=== PATIENT | female | born 1995 | race Caucasian/White ===

== ENCOUNTER 2019-11-21 16:39 | Outpatient (CLI) | payer OTHER, SELFPAY ==
--- NOTE | 2019-11-21 17:00 | US_ITS ---
WS: [id number] Gallbladder ultrasound, 11/21/2019 Clinical Data: ABDOMINAL PAIN Comparison: None. Findings: The gallbladder shows no sludge or stone. The wall measures 2.0 mm with no pericholecystic fluid. The common bile duct is 5.1 mm and there are no intrahepatic ductal abnormalities. Liver shows no cysts, masses or dilated intrahepatic ducts. The pancreas is obscured by overlying bowel gas but no cyst, pseudocyst, or evidence of pancreatitis is noted. Right kidney measures 4.56 x 4.95 x 9.8 cm and no cyst, masses or hydronephrosis can be seen. The aorta and inferior vena cava show no vascular abnormalities. US/US gall bladder [id number] Impression: Negative gallbladder.
== END 2019-11-21 16:40 | disposition home or self-care (01) ==
LOC: RAD 16:46
PROVIDERS: PCP Nurse Practitioner Family; Visit Provider Nurse Practitioner Family
DX: R10.11 Right upper quadrant pain (principal)
CPT/HCPCS: 76705

== ENCOUNTER 2019-11-28 09:26 | Outpatient (CLI) | payer OTHER, SELFPAY ==
--- NOTE | 2019-11-28 09:32 | NM_ITS ---
WS: [id number] NUCLEAR MEDICINE HIDA SCAN CLINICAL INFORMATION: RUQ PAIN TECHNIQUE: Following intravenous administration of 7.8 mCi of technetium 99m mebrofenin, images of th e abdomen were obtained over the course of 60 minutes. Next, gallbladder ejection fraction was determ ined by obtaining preprandial and one-hour postprandial images of the gallbladder following oral rocio stion of Ensure. COMPARISON: Ultrasound November 21, 2019 FINDINGS: Normal hepatic uptake at 5 minutes. Gallbladder is visualized by 10 to 15 minutes. No evidence of acu te cholecystitis. Normal common bile duct and small bowel activity. No evidence of choledocholithiasi s. Normal gallbladder ejection fraction 75%. No evidence of chronic cholecystitis. NM/NM hepatobiliary w phar* [id number] IMPRESSION: 1. No evidence of acute or chronic cholecystitis. 2. Normal gallbladder ejection fraction 75%.
== END 2019-11-28 09:27 | disposition home or self-care (01) ==
LOC: NM 09:28
PROVIDERS: Family Provider Nurse Practitioner Family; PCP Nurse Practitioner Family; Visit Provider Nurse Practitioner Family
DX: R10.11 Right upper quadrant pain (principal)
CPT/HCPCS: 78227; A9537

== ENCOUNTER → 2021-09-22 09:30 | Outpatient (BNVA) | payer BC, SELFPAY | PROVIDERS: Visit Provider Family Medicine | DX: R79.89 Other specified abnormal findings of blood chemistry (principal); R10.11 Right upper quadrant pain; R11.0 Nausea | CPT/HCPCS: 80053; 82652; 85025 ==

== ENCOUNTER 2021-11-26 08:10 | Outpatient (CLI) | payer BC, SELFPAY | END 2021-11-26 08:11 | disposition home or self-care (01) | LOC: LAB 08:19 | PROVIDERS: PCP Nurse Practitioner Family; Visit Provider Nurse Practitioner Family | DX: Z32.01 Encounter for pregnancy test, result positive (principal) | CPT/HCPCS: 84702 ==

== ENCOUNTER 2021-12-06 08:33 | Outpatient (CLI) | payer BC, SELFPAY | END 2021-12-06 08:34 | disposition home or self-care (01) | LOC: LAB 08:48 | PROVIDERS: PCP Family Medicine; Visit Provider Obstetrics & Gynecology Gynecology | DX: Z32.01 Encounter for pregnancy test, result positive (principal) | CPT/HCPCS: 36415; 84702 ==

== ENCOUNTER → 2022-02-15 11:46 | Outpatient (BNVA) | payer BC, SELFPAY | PROVIDERS: Visit Provider Family Medicine | DX: Z34.00 Encounter for supervision of normal first pregnancy, unspecified trimester (principal) | CPT/HCPCS: 81511 ==

== ENCOUNTER 2022-03-04 08:41 | Outpatient (CLI) | payer BC, SELFPAY ==
--- NOTE | 2022-03-04 08:53 | US_ITS ---
WS: [id number] OBSTETRICAL ULTRASOUND COMPLETE HISTORY: ANATOMY COMPARISON: None available. Single intrauterine gestation in Cephalic presentation. Cervix is Closed and normal length. Cervical length is 4.0 cm. Normal amount of amniotic fluid surrounds the fetus. Placenta: Anterior, no previa or abruption. Placenta grade 1 Heart: 138 BPM. Four chambers are identified. 4 chambers are visualized. The outflow tracts are visua lized and appear normal. Anatomy: Imaging the head is difficult due to position of the head deep within the pelvis. No a bnormality identified. Spine is unremarkable but limited. kidneys, stomach and urinary bladder are unremarkable. Abdominal wall, three-vessel cord and cord insertion site are normal. 4 extremities are present. profile: Limited. Gender: Female. measurements: BPD = 4.5 cm = 19w3d HC = 16.2 cm = 19w0d AC = 12.6 cm = 18w1d FL = 2.9 cm = 19w0d EFW: 251 g. Biometry is internally concordant. AGA by ultrasound: 18w6d MARLENE by ultrasound: 07/30/2022 US/US OB >= 14 weeks fetus [id number] IMPRESSION: 1. Single intrauterine gestation of 18w6d with an MARLENE of 07/30/2022. 2. Quality of this examination is limited by body habitus and early gestationa l age. No abnormalities are identified.
== END 2022-03-04 08:42 | disposition home or self-care (01) ==
PROVIDERS: PCP Nurse Practitioner Adult Health; Visit Provider Family Medicine
DX: Z34.02 Encounter for supervision of normal first pregnancy, second trimester (principal); Z3A.18 18 weeks gestation of pregnancy
CPT/HCPCS: 76805

== ENCOUNTER → 2022-03-06 12:25 | Outpatient (BNVA) | payer BC, SELFPAY | PROVIDERS: PCP Nurse Practitioner Adult Health; Visit Provider Registered Nurse Neonatal Intensive Care | DX: Z20.822 Contact with and (suspected) exposure to COVID-19 (principal) | CPT/HCPCS: 87635 ==

== ENCOUNTER → 2022-04-15 09:35 | Outpatient (BNVA) | payer BC, SELFPAY | PROVIDERS: PCP Family Medicine; Visit Provider Family Medicine | DX: Z34.00 Encounter for supervision of normal first pregnancy, unspecified trimester (principal) | CPT/HCPCS: 82950 ==

== ENCOUNTER → 2022-06-17 11:00 | Outpatient (BNVA) | payer BC, SELFPAY | PROVIDERS: PCP Family Medicine; Visit Provider Family Medicine | DX: Z34.00 Encounter for supervision of normal first pregnancy, unspecified trimester (principal); Z51.81 Encounter for therapeutic drug level monitoring; R30.0 Dysuria | CPT/HCPCS: 81003; 85025; 87086 ==

== ENCOUNTER → 2022-07-01 10:46 | Outpatient (BNVA) | payer BC, SELFPAY | PROVIDERS: PCP Family Medicine; Visit Provider Family Medicine | DX: Z34.00 Encounter for supervision of normal first pregnancy, unspecified trimester (principal) | CPT/HCPCS: 87081 ==

== ENCOUNTER 2022-07-24 22:55 | Inpatient (IN) | payer BC, OTHER, SELFPAY ==
[2022-07-24] VITALS (33 sets, daily range): BP systolic 122–139; BP diastolic 72–87; PULSE 61–108; RESP 18; TEMP 36.7; O2SAT 97–99; BMI 56.1
[2022-07-25] VITALS (91 sets, daily range): BP systolic 89–156; BP diastolic 51–93; PULSE 48–160; RESP 14–20; TEMP 35.6–37.4; O2SAT 98–100
[2022-07-25] MEDS: dextrose 5%-lactated ringers 1,000 ML 125 ML IV ×3 (01:15→18:07)
[2022-07-25] MEDS: oxytocin 30 UNIT/500 ML BAG IV (06:10)
[2022-07-25 06:55] LABS: Basophils % 0.2 %; Eosinophils # 0.1 10^3/uL (0.0-0.8); Eosinophils % 0.6 %; Hematocrit 37.8 % (37.0-47.0); Lymphocytes # 2.7 10^3/uL (0.8-4.8); Lymphocytes % 24.2 %; Mean Corpuscular HGB Conc 31.7 g/dL (30.0-36.0); Mean Corpuscular Hemoglobin 27.5 pg (28.0-34.0); Mean Corpuscular Volume 86.5 fl (81-99); Mean Platelet Volume 14.1 fL (7.4-10.4); Monocytes # 0.8 10^3/uL (0.2-0.9); Monocytes % 7.1 %; Neutrophils # 7.38 10^3/uL (1.8-7.7); Neutrophils % 67.1 %; Nucleated Red Blood Cells % 0 %; Platelet Count 179 10^3/cmm (130-400); Red Blood Count 4.37 10^6/uL (4.1-5.3); Red Cell Distribution Width 15.3 % (12.1-15.1)
--- NOTE | 2022-07-25 08:29 | P.HP_ITS ---
Providers/Chief Complaint Admitting Physician: Hank Yañez MD Primary Care Provider: Jimbo Tai DO Chief Complaint: contractions History of Present Illness Kelli is a 27 y/o @ 39.2 weeks by 7 wk US inconsistent with LMP. Her preg is c/b PCOS, obesity, 1st TM bleeding, COVID-19 at 19 weeks gestation. The patient began having contractions at approximately 3 PM on 07/24/2022. They gradually became more regular and for this reason she presented to labor and delivery triage. She was noted to have regular contractions and changed from 3 cm to 4 cm dilation over the course of an hour and a half. For this reason she was kept for spontaneous labor. The patient is GBS negative. She has had some mild congestion, however no other cough, fevers, nausea, vomiting, diarrhea, constipation, dysuria. She denies any leakage of fluid or vaginal bleeding. Medications/Allergies Home Medications Medication Instructions Recorded Confirmed Last Taken Type omeprazole 20 mg capsule,delayed 20 mg PO DAILY 05/26/21 07/22/22 Unknown History release buspirone 5 mg tablet 5 mg PO TID #90 tabs 12/21/21 07/22/22 Unknown Rx Allergies Allergy/AdvReac Type Severity Reaction Status Date / Time Penicillins Allergy Unknown Verified 07/18/22 15:25 PFSH Acute PFSH: Medical History GERD (gastroesophageal reflux disease) PCOS (polycystic ovarian syndrome) Family History Grandfather Cancer Grandmother Cancer Mother Hypertension Diabetes Hypothyroidism Social History Smoking and tobacco status: never smoked Second hand smoke exposure: No Alcohol intake: current Alcohol intake frequency: few times a month Desire information about alcohol rehabilitation?: No Female Reproductive History: : 1 Vitals/I&O/Wt Last Vital Signs Temp 97.1 F L 07/25/22 04:23 Pulse 98 07/25/22 08:23 Resp 18 07/25/22 06:07 BP 116/80 07/25/22 08:23 Pulse Ox 98 07/24/22 22:37 O2 Del Method 07/24/22 23:47 07/24/22 07/25/2207/25/22 22:59 06:59 14:59 Intake Total 6.667 / 6.667 Balance 6.667 / 6.667 Weight last 48 hrs Weight 317 lb Weight 317 lb Physical Exam Narrative: General: Alert and oriented x3 Eyes: Pupils equal round and reactive to light and accommodation Mouth: Mucous membranes moist, pharynx non-erythematous Cardiac: Regular rate and rhythm without murmurs Lungs: Clear to auscultation bilaterally without wheezes, crackles or rhonchi Abdomen: Soft, non-tender, fundus consistent with gestational age Extremities: Trace edema in the bilateral lower extremities Data : 07/24/22 23:23 A&P Assessment and plan (1) Supervision of normal intrauterine in primigravida: The patient is doing well at this time. She is enrique every 2 to 3 minutes. heart tones are in the mid 130s with moderate variability good accelerations with a category 1 tracing. The patient is GBS negative. Her blood type is O+. We have added IV Pitocin as the patient's contractions were spacing out. We will continue to increase this as needed to keep her contractions close and her cervix changing. She is currently 6 cm dilated with 95% effacement. There is a bulging bag of water, however the head is still ballotable. Proceed with routine intrapartum care. Attestations Medical Necessity Statement*: The patient will be here for greater than 2 midnights due to routine intrapartum and management of labor and delivery. Coding Level of Care Code Acute Practice Management Consultant for Chg Fwd Diagnoses Supervision of normal intrauterine in primigravida Z34.00
[2022-07-25] MEDS: lactated ringers 1,000 ML 999 ML IV ×2 (08:41→09:44)
--- NOTE | 2022-07-25 09:27 | ANES.PREANE2 ---
Pre-Anesthetic Assessment Height/Weight: Height 1.6 m Weight 143.789 kg Temp Pulse Resp BP Pulse Ox O2 Del Method 97.9 F 96 18 130/72 98 07/25/22 09:08 07/25/22 09:07 07/25/22 06:07 07/25/22 09:07 07/24/22 22:37 07/24/22 23:47 Epidural Familial anesthetic complications: None Was Beta Priscilla taken within 24 hours: N/A Was Clonidine taken within 24 hours: N/A Last Intake: 20:00 (07/24/22) Social No alcohol and No tobacco Exam alert, oriented x 3, clear to auscultation bilaterally and regular rate & rhythm Airway Submandibular: within normal limits Cervical ROM: within normal limits Mallampati: Class III Dentition: full History/ROS No significant history except as noted and No significant complaints Pulmonary None reported CV/HEM None reported None reported Hepatic None reported GI Gastroesophageal Reflux Disease (Controlled) Metabolic Morbid Obesity [facility] [place] None reported Neuropsych Anxiety Anesthetic Plan ASA status: 2 Anesthesia: Anesthesia Evaluation, Eval. for regional block and Regional (specify below) (epidural) Risk of > 500 ml blood loss (7ml/kg in children): No Medications/Allergies Home Medications Medication Instructions Recorded Confirmed Last Taken Type omeprazole 20 mg capsule,delayed 20 mg PO DAILY 05/26/21 07/25/22 Unknown History release buspirone 5 mg tablet 5 mg PO TID #90 tabs 12/21/21 07/25/22 Unknown Rx Allergies Allergy/AdvReac Type Severity Reaction Status Date / Time Penicillins Allergy Unknown Verified 07/18/22 15:25 Current Medications Generic Name Dose Route Start Last Admin Trade Name Freq PRN Reason Stop Dose Admin Dextrose/Lactated Ringer's 1,000 mls @ 125 mls/hr 07/24/22 23:45 07/25/22 01:15 Dextrose 5%-Lactated Ringers IV 125 mls/hr .Q8H MARCELA Administration Oxytocin 30 unit in 500 mls @ 2 mls/hr 07/25/22 01:45 07/25/22 08:00 Pitocin IV 8 milliunit/min .Q24H MARCELA 8 mls/hr Titration Protocol 2 MILLIUNIT/MIN Lactated Ringer's 1,000 mls @ 999 mls/hr 07/25/22 08:37 07/25/22 08:41 Lactated Ringers IV 999 mls/hr .Q1H1M PRN Administration See label comments PFSH Anesthesia Medical History GERD (gastroesophageal reflux disease) PCOS (polycystic ovarian syndrome) Family History Grandfather Cancer Grandmother Cancer Mother Hypertension Diabetes Hypothyroidism Social History Smoking and tobacco status: never smoked Second hand smoke exposure: No Alcohol intake: current Alcohol intake frequency: few times a month Desire information about alcohol rehabilitation?: No Female Reproductive History : 1 Data Anesthesia : 07/24/22 23:23 Short CBC 07/24/22 Range/Units 23:23 WBC 11.0 H (4.0-10.0) 10^3/uL Hgb 12.0 (11.5-15.3) g/dL Hct 37.8 (37.0-47.0) % MCV 86.5 (81-99) fl Plt Count 179 (130-400) 10^3/cmm Neut % (Auto) 67.1 % Neut # (Auto) 7.38 (1.8-7.7) 10^3/uL Cardiac Studies: No Data to Display
--- NOTE | 2022-07-25 09:54 | ANES.PROC ---
Anesthesia Procedures Procedure/Date: 07/25/22 Epidural: Time Out Performed: Yes Consents Signed: Procedure Consent and NPO Consent Consent: requested by attending/covering physician, from patient, risks and benefits reviewed and patient agrees to proceed Lumbar Level: L3-L4 Epidural position: sitting Epidural procedure: sterile prep of area, 1% lidocaine to numb the area, neg for paresthesia, test dose given (3 ml/ 2ml), 1.5% xylocaine 1:200k epi, 0.2% Ropivacaine bolus ml (5 mL), placed PCEA, no systemic response, sterile dressing applied and 0.2% Ropiavacaine @ mls/hr (11 ml/hr) Additional Comments: ERICK 8cm, catheter advanced to 12cm
[2022-07-25] MEDS: alum-mag-hydroxide-sime 30 mL UDC PO (14:04)
--- NOTE | 2022-07-25 19:31 | PM.DELIVERY ---
Delivery Note: Date of delivery: July 25, 2022 Pre-delivery diagnoses: 1. Intrauterine at 39.2 weeks gestation 2. Obesity 3. First trimester bleeding 4. COVID-19 at 19 weeks gestation 5. Spontaneous labor Post-delivery diagnoses: 1. Intrauterine at 39.2 weeks gestation 2. Obesity 3. First trimester bleeding 4. COVID-19 at 19 weeks gestation 5. Spontaneous labor 6. Delivery of healthy infant female weighing 7 pounds 10 ounces with Apgars of 9 and 9 7. Second-degree vaginal laceration with repair Procedure: 1. Spontaneous vaginal delivery 2. Secondary vaginal laceration with repair Delivering Physician: Hank Yañez MD Estimated blood loss (mL): 200 Findings: 1. Healthy female weighing 7 pounds 10 ounces with Apgars of 9 and 9 2. Intact placenta with central umbilical cord insertion site Pre-Delivery Course: Kelli is a 27 y/o G1 now P1 status post spontaneous vaginal delivery @ 39.2 weeks by 7 wk US inconsistent with LMP. Her preg is c/b PCOS, obesity, 1st TM bleeding, COVID-19 at 19 weeks gestation. The patient began having contractions at approximately 3 PM on 07/24/2022.? They gradually became more regular and for this reason she presented to labor and delivery triage.? She was noted to have regular contractions and changed from 3 cm to 4 cm dilation over the course of an hour and a half.? For this reason she was kept for spontaneous labor. The patient continued to contract on her own, however her contractions spaced out and her progress was slow, so IV Pitocin was added to augment labor. The patient made slow but gradual change and received a laboring epidural on the morning of 07/25/2022. The patient had spontaneous rupture of membranes at 11:51 AM on 07/25/2022. The patient continued to make slow but steady change and was complete by 1619 on 07/25/2022. Delivery: The infant was high in the pelvis, so the patient labor down for approximately 1 hour. She began pushing at 1724 on 07/25/2022. The patient pushed well, however there was concern that the infant was in the OP position. Internal rotation was attempted. The patient continued to push and the infant delivered at 1853 on 07/25/2022. The infant delivered in the OA position. A nuchal cord was present and was reduced. Downward pressure was placed in the left shoulder was anterior shoulder and it delivered with ease. Rest of the infant delivered with ease. The infant's mouth and nose were bulb suctioned by myself and the infant took a breath immediately upon delivery. The infant was placed on the mother's chest where the nurses were waiting to care for her. The cord was clamped after approximately 1 minute and cut by the infant's father. Cord blood was obtained. The cord was then drained of blood and traction was placed on umbilical cord. Uterine massage was carried out and the placenta delivered without complication at 1859 on 07/25/2022. The placenta was noted to be intact with a central umbilical cord insertion site. The cervix was inspected and no lacerations were noted. The vaginal wall was inspected and a second-degree midline hymenal laceration was noted. This was repaired using 3-0 Vicryl in a running fashion. 2% lidocaine was placed for local anesthesia. The patient tolerated this well. Rectal exam was done and no sutures were noted in the rectal vault. Post-Delivery Status: Currently both the mother and are doing well. We will continue with routine care at this time. History History History 1 Term 1 0 Miscarriages/Ectopic 0 Living Children 1 Past Pregnancies Del. Date GA/Weeks Outcome Route Wt Inf Gender Labor Lgth Comp. Anesthesia Location 07/25/22 39 live - full term Vaginal 7 lb 10 oz Female 20 regional [facility] Delivery Date: 07/25/22 Last Updated by: Hank Yañez MD 2nd degree hymenal laceration, spontaneous labor at 39.1 weeks gestation. A&P Assessment and plan (1) Spontaneous vaginal delivery: Coding Level of Care Code Acute Post Secondary Professional for Chg Fwd Diagnoses Spontaneous vaginal delivery O80
[2022-07-26 01:00] VITALS: BP 122/71; PULSE 102; RESP 18; TEMP 36.8
[2022-07-26] MEDS: acetaminophen 325 mg Tablet 650 MG PO (02:57)
[2022-07-26 03:03] VITALS: BP 109/68; PULSE 97; RESP 18; TEMP 36.8
[2022-07-26] MEDS: benzocaine-menthol 78 gm Canister 1 SPRAY TOPICAL (04:34)
[2022-07-26 04:50] VITALS: BP 117/77; PULSE 104; RESP 18; TEMP 36.8; O2SAT 99
--- NOTE | 2022-07-26 08:18 | P.PN_ITS ---
Subjective Subjective: The patient is doing well today. She is ambulating, voiding, passing gas and tolerating food by mouth. Her bleeding is decreasing well. Her pain is well controlled. Vitals/I&O/Wt Last Vital Signs Temp 98.2 F 07/26/22 04:50 Pulse 104 H 07/26/22 04:50 Resp 18 07/26/22 04:50 BP 117/77 07/26/22 04:50 Pulse Ox 99 07/26/22 04:50 O2 Del Method 07/26/22 04:50 07/25/22 07/26/22 07/26/22 22:59 06:59 14:59 Intake Total 1697.800 / 4734.967 Output Total 1000 / 1000 Balance 697.800 / 3734.967 Weight last 48 hrs Weight 317 lb Weight 317 lb Physical Exam Narrative: General: Alert and oriented x3 Cardiac: Regular rate and rhythm without murmurs Lungs: Clear to auscultation bilaterally without wheezes, crackles or rhonchi Abdomen: Soft, mild tenderness over uterus. The uterus is firm and 2 cm below the umbilicus. Extremities: Trace edema in the bilateral lower extremities Urinary Catheter Management: Leal: Cath Placed During This Visit: yes, but has since been removed by the nurse Reason for Continuing Indwelling Catheter: Other Urinary Catheter Date of Insertion: 07/25/22 Urinary Catheter Time of Insertion: 10:30 Date Urinary Catheter Removed: 07/25/22 Time Urinary Catheter Discontinued: 17:20 Data : 07/26/22 09:15 A&P Assessment and plan (1) Spontaneous vaginal delivery: The patient is doing well status post spontaneous vaginal delivery yesterday. She is showing no signs of complications. Her blood count is stable. We will continue with routine care and plan for discharge tomorrow if things are going well. All questions were answered. Attestations Medical Necessity Statement*: The patient will be here for greater than 2 midnights due to routine intrapartum and management of labor delivery. Coding Level of Care Code Acute Hair Or Beauty Salon Assistant for Alec Marquez Diagnoses Spontaneous vaginal delivery O80
--- NOTE | 2022-07-26 08:53 | PC.NURSE ---
This RN-IBCLC to bedside for latch assessment. Patient stated that had latched after but had struggled since, that nipple shield had been tried and formula offered early this morning. Patient was encouraged to position herself comfortably and she chose to latch infant in the football hold. She had stated that she had felt like was falling when she had been using that position earlier. Education of football hold was offered, patient then placed infant in football hold and stated that she felt much more secure. was then encouraged to latch to the breast. Nipple tissue was noted to flatten out when manipulated. After several attempts to latch, this RN suggested to try the nipple shield to see how infant did. Patient placed the nipple shield and was able to latch after a few attempts. Strong jaw movements were noted. Nipple shield was one patient had brought from home and she did not know what size it was. Discussed trying a larger size at next feed as the nipple was not pulled all the way into the shield when unlatched. Patient agreed to this.
[2022-07-26] MEDS: docusate sodium 100 mg Capsule PO ×2 (08:57→18:45)
[2022-07-26] MEDS: ibuprofen 800 mg tablet PO ×3 (08:57→20:44)
[2022-07-26] MEDS: prenatal vitamin Capsule 1 CAP PO (08:57)
[2022-07-26 09:42] LABS: Hematocrit 33.9 % (37.0-47.0); Hemoglobin 10.7 g/dL (11.5-15.3); Mean Corpuscular HGB Conc 31.6 g/dL (30.0-36.0); Mean Corpuscular Hemoglobin 27.3 pg (28.0-34.0); Mean Corpuscular Volume 86.5 fl (81-99); Mean Platelet Volume 13.1 fL (7.4-10.4); Platelet Count 142 10^3/cmm (130-400); Red Blood Count 3.92 10^6/uL (4.1-5.3); Red Cell Distribution Width 15.4 % (12.1-15.1); White Blood Count 12.1 10^3/uL (4.0-10.0)
[2022-07-26 11:21] VITALS: BP 116/66; PULSE 107; RESP 16; TEMP 36.4; O2SAT 97
--- NOTE | 2022-07-26 12:02 | PC.NURSE ---
This RN-IBCLC to bedside. Patient undressed and changed diaper to assist with waking and stimulating infant. Patient positioned self and , reminded patient to have tummy to tummy with herself. Patient had been using 16mm nipple shield that appeared to snug, Issued a 20mm shield. This was placed and was latched with minimal issues. Jaw movement was noted. Patient asked about extra stimulation after feeds with the pump, recommended 5 minutes per side after each feed until is more vigorous at the breast.
[2022-07-26 15:51] VITALS: BP 136/79; PULSE 99; RESP 16; TEMP 36.6; O2SAT 97
[2022-07-26 20:52] VITALS: BP 138/88; PULSE 96; RESP 17; TEMP 36.6; TEMP 36.7
[2022-07-27 03:54] VITALS: BP 117/82; PULSE 89; RESP 17; TEMP 36.6
--- NOTE | 2022-07-27 07:18 | PM.PN ---
Subjective Subjective: The patient is doing well at this time. She is ambulating, voiding, passing gas and tolerating food by mouth. She is having some swelling in her bilateral lower extremities. She is working on breast-feeding and it is going okay overall but she feels that there is not much milk production yet. Vitals/I&O/Wt Last Vital Signs Temp 97.9 F 07/27/22 03:54 Pulse 89 07/27/22 03:54 Resp 17 07/27/22 03:54 BP 117/82 07/27/22 03:54 Pulse Ox 97 07/26/22 15:51 O2 Del Method 07/26/22 15:51 Physical Exam Narrative: General: Alert and oriented x3 Cardiac: Regular rate and rhythm without murmurs Lungs: Clear to auscultation bilaterally without wheezes, crackles or rhonchi Abdomen: Soft, mild tenderness over uterus. The uterus is firm and 2 cm below the umbilicus. Extremities: +1 pitting edema in the bilateral lower extremities Urinary Catheter Management: Leal: Cath Placed During This Visit: yes, but has since been removed by the nurse Reason for Continuing Indwelling Catheter: Other Urinary Catheter Date of Insertion: 07/25/22 Urinary Catheter Time of Insertion: 10:30 Date Urinary Catheter Removed: 07/25/22 Time Urinary Catheter Discontinued: 17:20 Data : 07/26/22 09:15 A&P Assessment and plan (1) Spontaneous vaginal delivery: The patient is doing well overall, however having some swelling. We will continue with current medical treatment and keep 1 more day. Plan for discharge home tomorrow if she is doing better. Attestations Medical Necessity Statement*: The patient will be here for greater than 2 midnights due to routine intrapartum and management of labor and delivery. Coding Level of Care Code Acute Coal Digger for Alma Deliag Fwd Diagnoses Spontaneous vaginal delivery O80
--- NOTE | 2022-07-27 08:15 | PC.NURSE ---
This RN-IBCLC to bedside for latch assessment, patient using a 24mm nipple shield, positioned shield and independently. was crying, mother was able to sooth infant. After several attempts patient was able to latch infant. was noted to have large jaw movements. When unlatched drops were noted in the shield. Patient had questions about supplementing with expressed milk or formula. Education on paced bottle feeding was provided. Mother encouraged to stimulate the breasts if feeding by bottle. Reminders given that needs to eat every 2-3 hours.
[2022-07-27] MEDS: ibuprofen 800 mg tablet PO ×3 (09:15→21:09)
[2022-07-27] MEDS: docusate sodium 100 mg Capsule PO ×2 (09:15→18:31)
[2022-07-27] MEDS: prenatal vitamin Capsule 1 CAP PO (09:15)
[2022-07-27 09:37] VITALS: BP 145/85; PULSE 88; RESP 17; TEMP 36.6
--- NOTE | 2022-07-27 13:36 | ANE.PACU2 ---
Inpatient post-anesthesia follow up: Airway intact: Yes Vital signs: Temperature 97.8 F Pulse Rate 88 Respiratory Rate 17 Blood Pressure 145/85 Pulse Oximetry 97 Oxygen Delivery Me thod Room Air Oxygen Flow Rate Fraction of Inspir ed Oxygen Hydration adequate: Yes Nausea and vomiting: Yes Pain level: 1 Mental status: Baseline
[2022-07-27 15:34] VITALS: BP 158/85; PULSE 84; RESP 15; TEMP 36.8
[2022-07-27 22:28] VITALS: BP 137/93; PULSE 78; RESP 16; TEMP 36.9
[2022-07-28 04:55] VITALS: BP 144/90; PULSE 72; PULSE 89; RESP 16; TEMP 36.7
--- NOTE | 2022-07-28 07:48 | PC.NURSE ---
This RN-IBCLC to bedside, mother was holding , no bili lights were on. Education was provided that needs to be under lights as much as possible to help bring bili levels down. Mother and father both stated that they understood but infant was really fussy. This RN suggested that mother do skin to skin with and have giraffe lights over . Parents were receptive to this suggestion. Father replaced eye coverings, mother placed skin to skin and lights were directed at . was still fussy, recommended to offer the breast. latched with the shield with little effort, lips noted to be flared. Mother reported that latch was comfortable.
--- NOTE | 2022-07-28 08:34 | P.DS_ITS ---
Discharge Providers Date of Admission: 07/24/22 22:55 Date of Discharge: July 28, 2022 Attending Provider at Admission: Hank Yañez MD Attending Provider at Discharge: Hank Yañez MD Primary Care Provider: Jimbo Tai DO Diagnoses at Discharge Discharge Diagnosis (1) Spontaneous vaginal delivery: Status: Acute Other Information Additional DC diagnoses/information: 1.? Intrauterine status post spontaneous vaginal delivery at 39.2 weeks gestation 2.? Obesity 3.? First trimester bleeding 4.? COVID-19 at 19 weeks gestation 5.? Spontaneous labor 6.? Delivery of healthy female weighing 7 pounds 10 ounces with Apgars of 9 and 9 7.? Second-degree vaginal laceration with repair? Reason for Visit Reason for Visit: contractions Brief History: Kelli is a 27 y/o G1 now P1 status post spontaneous vaginal delivery @ 39.2 weeks by 7 wk US inconsistent with LMP. Her preg is c/b PCOS, obesity, 1st TM bleeding, COVID-19 at 19 weeks gestation. The patient began having contractions at approximately 3 PM on 07/24/2022.? They gradually became more regular and for this reason she presented to labor and delivery triage.? She was noted to have regular contractions and changed from 3 cm to 4 cm dilation over the course of an hour and a half.? For this reason she was kept for spontaneous labor. Hospital Course Hospital Course The patient continued to contract on her own, however her contractions spaced out and her progress was slow, so IV Pitocin was added to augment labor.? The patient made slow but gradual change and received a laboring epidural on the morning of 07/25/2022.? The patient had spontaneous rupture of membranes at 11:51 AM on 07/25/2022.? The patient continued to make slow but steady change and was complete by 1619 on 07/25/2022. The was high in the pelvis, so the patient labor down for approximately 1 hour.? She began pushing at 1724 on 07/25/2022.? The patient pushed well, however there was concern that the was in the OP position.? Internal rotation was attempted.? The patient continued to push and the infant delivered at 1853 on 07/25/2022.? The infant delivered in the OA position.? A nuchal cord was present and was reduced.? Downward pressure was placed in the left shoulder was anterior shoulder and it delivered with ease.? Rest of the delivered with ease.? The infant did well after delivery and the mother had no complications other than a second-degree midline hymenal laceration. the patient has done well. She is ambulating, voiding, passing gas and tolerating food by mouth. She did have some elevated blood pressures in the 140s and 1 in the 150s systolic. The patient is to check her blood pressure at home and if staying elevated, we may need to start labetalol for hypertension. We will follow-up in clinic next week to see how she is doing with this. Otherwise the patient's pain is well controlled and she is doing well overall. Routine discharge instructions were discussed. The patient is in agreement with discharge home at this time. All questions were answered. Physical Exam Narrative: General: Alert and oriented x3 Cardiac: Regular rate and rhythm without murmurs Lungs: Clear to auscultation bilaterally without wheezes, crackles or rhonchi Abdomen: Soft, mild tenderness over uterus. The uterus is firm and 2 cm below the umbilicus. Extremities: +1 pitting edema in the bilateral lower extremities Urinary Catheter Management: Leal: Cath Placed During This Visit: yes, but has since been removed by the nurse Reason for Continuing Indwelling Catheter: Other Urinary Catheter Date of Insertion: 07/25/22 Urinary Catheter Time of Insertion: 10:30 Date Urinary Catheter Removed: 07/25/22 Time Urinary Catheter Discontinued: 17:20 Discharge Data Studies Completed and Pending Laboratory Results WBC 12.1 10^3/uL (4.0-10.0) H 07/26/22 09:15 RBC 3.92 10^6/uL (4.1-5.3) L 07/26/22 09:15 Hgb 10.7 g/dL (11.5-15.3) L 07/26/22 09:15 Hct 33.9 % (37.0-47.0) L 07/26/22 09:15 MCV 86.5 fl (81-99) 07/26/22 09:15 MCH 27.3 pg (28.0-34.0) L 07/26/22 09:15 MCHC 31.6 g/dL (30.0-36.0) 07/26/22 09:15 RDW 15.4 % (12.1-15.1) H 07/26/22 09:15 Plt Count 142 10^3/cmm (130-400) 07/26/22 09:15 MPV 13.1 fL (7.4-10.4) H 07/26/22 09:15 Neut % (Auto) 67.1 % 07/24/22 23:23 Lymph % (Auto) 24.2 % 07/24/22 23:23 [place] % (Auto) 7.1 % 07/24/22 23:23 Eos % (Auto) 0.6 % 07/24/22 23:23 Baso % (Auto) 0.2 % 07/24/22 23:23 Neut # (Auto) 7.38 10^3/uL (1.8-7.7) 07/24/22 23:23 Lymph # (Auto) 2.7 10^3/uL (0.8-4.8) 07/24/22 23:23 [place] # (Auto) 0.8 10^3/uL (0.2-0.9) 07/24/22 23:23 Eos # (Auto) 0.1 10^3/uL (0.0-0.8) 07/24/22 23:23 Baso # (Auto) 0.0 10^3/uL (0.0-0.1) 07/24/22 23:23 Nucleated RBC % (auto) 0 % 07/24/22 23:23 Nucleated RBCs # 0.0 /100WBC 07/24/22 23:23 Vitals Last Vital Signs Temp 98.0 F 07/28/22 04:55 Pulse 89 07/28/22 04:55 Resp 16 07/28/22 04:55 BP 144/90 07/28/22 04:55 Pulse Ox 97 07/26/22 15:51 O2 Del Method 07/26/22 15:51 Discharge Plan Discharge Patient Disposition: Home Prescriptions: New ibuprofen 800 mg Tablet 800 mg PO TID Qty: 30 0RF -U 106.5-1 mg Capsule 1 cap PO DAILY Qty: 30 0RF ferrous sulfate 325 mg (65 mg iron) tablet,delayed release (DR/EC) 325 mg PO DAILY Qty: 14 0RF Continued omeprazole 20 mg capsule,delayed release(DR/EC) 20 mg PO DAILY Adacel(Tdap Adolesn/Adult)(PF) 2 Lf-(2.5-5-3-5 mcg)-5Lf/0.5 mL syringe 0.5 ml IM ONCE Qty: 0.5 0RF buspirone 5 mg tablet 5 mg PO TID Qty: 90 1RF Discharge Orders: Discharge Order (Routine); Ordered 07/28/22 Ordered By: Hank Yañez Referrals: Hank Yañez MD [Physician] - 09/05/22 11:00 am Discharge Diet: Regular Discharge Activity: Increase activity as tolerated Patient Instructions: , Lanolin (On the skin) (Lansinoh For Breast Feeding Mothers,..., Your Baby (DC), Preeclampsia and Eclampsia After Delivery (GEN), Breast Care for the Mother (ED), OB Discharge Report, OB Food/Drug Interaction Guide, Opioid Safety, OB Your Care - [facility], OB Vaginal Deliveries Activity Restrictions/Additional Instructions: Nothing per vagina for 6 weeks. Please check your blood pressure at home and if it is staying above 140/90, please let me know. Discharge Attestations Time Spent in Discharge Care*: greater than 30 min Quality Metrics Clinical Quality Measures [ No reported AMI, CVA or VTE this stay] Coding Level of Care Code Acute Chg FW DC note Diagnoses Spontaneous vaginal delivery O80
[2022-07-28] MEDS: prenatal vitamin Capsule 1 CAP PO (08:55)
[2022-07-28] MEDS: ibuprofen 800 mg tablet PO (08:55)
[2022-07-28] MEDS: docusate sodium 100 mg Capsule PO (08:55)
[2022-07-28 10:57] VITALS: BP 143/82; PULSE 91; RESP 15; TEMP 36.4; O2SAT 97
== END 2022-07-28 10:58 | disposition home or self-care (01) | DRG 807 ==
LOC: OPOB 22:56 → OBGYN 22:57
PROVIDERS: Admitting Provider Family Medicine; PCP Family Medicine; Visit Provider Family Medicine
DX: O69.2XX0 Labor and delivery complicated by other cord entanglement, with compression, not applicable or unspecified (principal); Z37.0 Single live birth; O99.214 Obesity complicating childbirth; O99.284 Endocrine, nutritional and metabolic diseases complicating childbirth; E28.2 Polycystic ovarian syndrome; Z3A.39 39 weeks gestation of pregnancy; O70.1 Second degree perineal laceration during delivery; O75.89 Other specified complications of labor and delivery; K21.9 Gastro-esophageal reflux disease without esophagitis; Z88.0 Allergy status to penicillin; Z86.16 Personal history of COVID-19
CPT/HCPCS: 36415; 51702; 59025; 59409; 85025; 85027; 90686; 98960; 99211; J2795

== ENCOUNTER → 2022-09-05 11:44 | Outpatient (BNVA) | payer BC, OTHER, SELFPAY | PROVIDERS: PCP Family Medicine; Visit Provider Family Medicine | DX: Z00.00 Encounter for general adult medical examination without abnormal findings (principal); Z39.2 Encounter for routine postpartum follow-up; F41.9 Anxiety disorder, unspecified; M54.50 Low back pain, unspecified | CPT/HCPCS: 87624 ==

== ENCOUNTER → 2023-10-05 10:53 | Outpatient (BNVA) | payer OTHER, SELFPAY | PROVIDERS: PCP Family Medicine; Visit Provider Nurse Practitioner | DX: J02.9 Acute pharyngitis, unspecified (principal); J20.8 Acute bronchitis due to other specified organisms | CPT/HCPCS: 87426; 87880 ==

== ENCOUNTER → 2023-10-25 12:38 | Outpatient (BNVA) | payer OTHER, SELFPAY | PROVIDERS: PCP Family Medicine; Visit Provider Family Medicine | DX: R53.81 Other malaise (principal); R53.83 Other fatigue; F32.A Depression, unspecified; R11.0 Nausea; R10.11 Right upper quadrant pain; E55.9 Vitamin D deficiency, unspecified; R79.89 Other specified abnormal findings of blood chemistry; Z13.220 Encounter for screening for lipoid disorders; Z51.81 Encounter for therapeutic drug level monitoring; Z13.1 Encounter for screening for diabetes mellitus | CPT/HCPCS: 80053; 80061; 81025; 82306; 83036; 84439; 84443; 85025 ==

== ENCOUNTER 2024-09-04 21:37 | Emergency (ER) | payer OTHER, SELFPAY ==
[2024-09-04 21:46] VITALS: BP 170/94; PULSE 114; RESP 19; TEMP 36.7; O2SAT 98; BMI 48.9
[2024-09-04 22:00] VITALS: BP 166/96; PULSE 110; RESP 18; O2SAT 97
--- NOTE | 2024-09-04 22:05 | USR_ITS ---
PROCEDURE INFORMATION: Exam: US Abdomen, Limited; Right Upper Quadrant Exam date and time: 09/04/2024 10:11 PM Age: 29 years old Clinical indication: Abdominal pain; Epigastric; Additional info: Ruq pain TECHNIQUE: Imaging protocol: Real time ultrasound of the abdomen with image documentation. Limited exam focused on the right upper quadrant. COMPARISON: US gall bladder [id number] 11/21/2019 5:05 PM FINDINGS: Liver: Hepatomegaly. Gallbladder: Normal sonographic appearance of the gallbladder. Biliary ducts: Common bile duct measures up to 4 mm. Pancreas: Normal pancreas. Right kidney: Normal right kidney. Portal venous: The portal vein is patent. US/US gall bladder [id number] IMPRESSION: As above.
--- NOTE | 2024-09-04 22:06 | W.ED.ABDPA2 ---
HPI - Abdominal Pain General: Chief Complaint: Abdominal Pain Stated Complaint: n/v abd pain right abd around side and back Time Seen by Provider: 09/04/24 21:46 Source: patient Mode of arrival: ambulatory Limitations: no limitations History of Present Illness: Patient is a 29-year-old female who presents to the emergency department complaining of right upper quadrant abdominal pain beginning a couple hours prior to arrival. States she did not eat prior to the pain onset, was not really exerting herself when it started. Has a history of gallbladder issues in the past where she required HIDA scan, but states this has been a few years. She notes 2 episodes of vomiting and has been nauseous the whole time. States the pain has been constant but seems to come in waves or spasms. Does radiate to her right back/shoulder region and up to her right neck. She is not reporting any diarrhea or constipation, and no urinary symptoms. She denies any fever or chills. She has not taken anything for pain. No other pertinent past medical history to report, she still has her appendix and no other history of abdominal surgeries. MD elicited complaint: abdominal pain Pertinent past history: none Onset (ago): hour(s) Pain Consistency: constant Location: RUQ Severity: severe Quality: stabbing Radiation: back Exacerbating factors: nothing Relieving factors: nothing Associated Symptoms: Reports nausea and vomiting; Denies bloating, change in stool character, chills, constipation, diarrhea, dysuria, fever(s) and hematochezia Related Data Previous Rx's Medication Instructions Recorded albuterol sulfate 90 mcg/actuation 2 puff inhalation Q4H PRN 09/13/23 aerosol inhaler (Ventolin HFA) shortness of breath or wheezing #8.5 grams medroxyprogesterone 150 mg/mL 150 mg IM .every 3 months #1 mL 09/27/23 intramuscular suspension (Depo-Provera) cholecalciferol (vitamin D3) 50 50 mcg PO DAILY #30 caps 10/26/23 mcg (2,000 unit) capsule buspirone 10 mg tablet 10 mg PO BID PRN anxiety #60 tabs 11/13/23 fluoxetine 40 mg capsule 40 mg PO DAILY #90 caps 12/12/23 ondansetron HCl 4 mg tablet 4 mg PO Q8H #30 tabs 09/04/24 Allergies Allergy/AdvReac Type Severity Reaction Status Date / Time Penicillins Allergy Unknown Verified 09/04/24 21:53 Review of Systems General: Reports: 10 or more systems reviewed and unremarkable except in HPI and below Const: Denies: fever(s), chills, change in appetite, change in weight or diaphoresis ENMT: Denies: throat pain or hoarseness Card: Denies: chest pain, palpitations or lightheadedness Resp: Denies: dyspnea, productive cough or wheezing GI: Reports: abdominal pain, nausea and vomiting; Denies: diarrhea, constipation, bloating, change in stool character or hematochezia : Denies: flank pain, difficulty voiding, dysuria, urinary frequency or urinary urgency Musc: Reports: neck pain, back pain and joint pain (Right shoulder) Skin/Breast: Denies: rash or new lesions Neuro: Denies: headache(s) or dizziness PFSH ED PFSH: Medical History Minor depression Generalized anxiety disorder GERD (gastroesophageal reflux disease) PCOS (polycystic ovarian syndrome) Family History Grandfather Cancer Grandmother Cancer Mother Hypertension Diabetes Hypothyroidism Social History Smoking and tobacco/nicotine status: never used tobacco/nicotine Second hand smoke exposure: No Alcohol intake: current Alcohol intake frequency: few times a month Substance/Drug Use: never Physical Exam Const: COMMON NORMALS: no acute distress, patient oriented x3, no limitations, alert and well nourished GENERAL APPEARANCE: cooperative NUTRITIONAL APPEARANCE: obese morbidly obese ORIENTATION/CONSCIOUSNESS: Yes awake HENMT: COMMON NORMALS: normocephalic, atraumatic, hearing grossly normal bilaterally, external ears normal, Normal external nose present, Normal nasal mucous membranes and turbinates present and moist oral mucous membranes HEAD & SCALP: normocephalic and atraumatic NOSE: Normal external nose present and Normal nasal mucous membranes and turbinates present EXTERNAL EAR: Yes external ears normal Eye: COMMON NORMALS: Equal, round and reactive pupils present, EOMs intact bilaterally, conjunctivae normal and normal visual hastings by confrontation CONJUNCTIVA: Yes conjunctivae normal PUPIL: Yes Equal, round and reactive pupils present Neck/C-Spine: COMMON NORMALS: full ROM, supple, no meningeal signs and no JVD Resp: COMMON NORMALS: normal respiratory effort, No retractions, No use of accessory muscles and clear to auscultation bilaterally AUSCULTATION: clear to auscultation bilaterally, no crackles, no rales, no rhonchi and no wheezes Cardio: COMMON NORMALS: no JVD, regular rate, regular rhythm, S1 normal heart sound present, S2 normal heart sound present, No gallops present (Cardio), No clicks present (Cardio), No murmurs present (Cardio), No rub (Cardio) and Peripheral pulses 2+ throughout RATE: regular rate RHYTHM: regular rhythm HEART SOUNDS: S1 normal heart sound present and S2 normal heart sound present PERIPHERAL PULSES: Peripheral pulses 2+ throughout GI: COMMON NORMALS: Normal to inspection, nondistended, normoactive bowel sounds present, Soft to palpation, No hepatosplenomegaly present and no masses AUSCULTATION: Yes normoactive bowel sounds PALPATION: Yes Soft to palpation, Yes Tenderness to palpation present (GI) (Positive [place] sign) Details: RUQ, No Guarding due to palpation present (GI), No Rigid due to palpation and Yes No hepatosplenomegaly present RECTAL EXAM: deferred : COMMON NORMALS: Yes no CVA tenderness BLADDER/KIDNEY EXAM: Yes no CVA tenderness Back/Pelvis: COMMON NORMALS: no CVA tenderness Extremity: COMMON NORMALS: normal to inspection and full ROM Neuro: COMMON NORMALS: patient oriented x3, moves all extremities, no focal motor deficits and no sensory deficits noted SENSORIUM/ORIENTATION: Yes alert MENINGEAL SIGNS: Yes no meningeal signs Psych: COMMON NORMALS: mental status grossly normal, cooperative and speech normal SPEECH: Yes normal speech Skin: COMMON NORMALS: no rashes or lesions noted GENERAL SKIN EXAM: no rashes or lesions noted Course Vital Signs: Vital signs: Vital Signs Temperature 98.0 F 09/04/24 21:46 Pulse Rate 81 09/05/24 00:51 Respiratory Rate 14 09/05/24 00:51 Blood Pressure 135/82 09/05/24 00:51 Pulse Oximetry 97 09/05/24 00:51 Oxygen Delivery Me thod Room Air 09/05/24 00:30 MDM - Abdominal Pain Medical Decision Making Patient has history of pain to right upper quadrant, had her gallbladder checked in the past and never followed up with this. Ultrasound today not showing any significant findings other gallbladder, making this likely that this is a biliary colic and at her request will refer to general surgery. Will treat her nausea with Zofran at home, she did note improvement of her pain and nausea here after medications. All of her lab work was normal. Return precautions given. Case discussed with Dr. Suero. Lab Data 09/04/24 22:53 09/04/24 23:39 Labs/Radiology: Radiology Impressions Gallbladder Ultrasound 09/04/24 22:05 IMPRESSION: As above. Laboratory Results WBC 9.80 10^3/uL (3.29-11.43) 09/04/24 22:53 RBC 4.75 10^6/uL (3.85-5.65) 09/04/24 22:53 Hgb 13.00 g/dL (11.27-16.99) 09/04/24 22:53 Hct 40.7 % (36-47) 09/04/24 22:53 MCV 85.7 fl (85-98) 09/04/24 22:53 MCH 27.4 pg (27-33) 09/04/24 22:53 MCHC 31.9 g/dL (30-55) 09/04/24 22:53 RDW 13.4 % (12.1-15.1) 09/04/24 22:53 Plt Count 215 10^3/cmm (157-399) 09/04/24 22:53 MPV 12.0 fL (7.4-10.4) H 09/04/24 22:53 Neut % (Auto) 81.9 % 09/04/24 22:53 Lymph % (Auto) 11.7 % 09/04/24 22:53 [place] % (Auto) 3.9 % 09/04/24 22:53 Eos % (Auto) 2.1 % 09/04/24 22:53 Baso % (Auto) 0.2 % 09/04/24 22:53 Neut # (Auto) 8.02 10^3/uL (1.8-7.7) H 09/04/24 22:53 Lymph # (Auto) 1.2 10^3/uL (0.8-4.8) 09/04/24 22:53 [place] # (Auto) 0.4 10^3/uL (0.2-0.9) 09/04/24 22:53 Eos # (Auto) 0.2 10^3/uL (0.0-0.8) 09/04/24 22:53 Baso # (Auto) 0.0 10^3/uL (0.0-0.1) 09/04/24 22:53 Nucleated RBC % (auto) 0 % 09/04/24 22:53 Nucleated RBCs # 0.0 /100WBC 09/04/24 22:53 Sodium 142 mmol/L (136-145) 09/04/24 23:39 Potassium 4.0 mmol/L (3.5-5.1) 09/04/24 23:39 Chloride 109 mmol/L (98-107) H 09/04/24 23:39 Carbon Dioxide 20 mmol/L (22-29) L 09/04/24 23:39 Anion Gap 17.0 (5-19) 09/04/24 23:39 BUN 17 mg/dL (6-20) 09/04/24 23:39 Creatinine 0.7 mg/dL (0.5-0.9) 09/04/24 23:39 GFR Calculation 100.4 mL/min (90-130) 09/04/24 23:39 Glucose 107 mg/dL (65-115) 09/04/24 23:39 Calculated Osmolality 296 mOsm/kg (285-295) H 09/04/24 23:39 Calcium 8.5 mg/dL (8.5-10.5) 09/04/24 23:39 Total Bilirubin 0.7 mg/dL (0.15-1.2) 09/04/24 23:39 AST 15 U/L (0-32) 09/04/24 23:39 ALT 14 U/L (0-33) 09/04/24 23:39 Alkaline Phosphatase 78 U/L (35-105) 09/04/24 23:39 Total Protein 7.0 g/dL (6.6-8.7) 09/04/24 23:39 Albumin 3.9 g/dL (3.5-5.2) 09/04/24 23:39 Globulin 3.1 g/dL (1.3-4.6) 09/04/24 23:39 Lipase 24 U/L (13-60) 09/04/24 23:39 HCG, Qual Negative (Negative) 09/04/24 23:39 Urine Color Yellow (Yellow) 09/04/24 22:05 Urine Appearance Clear (CLEAR) 09/04/24 22:05 Urine pH 6.5 (5-7) 09/04/24 22:05 Ur Specific [place] 1.028 (1.005-1.030) 09/04/24 22:05 Urine Protein Trace (Negative) A 09/04/24 22:05 Urine Glucose (UA) Negative (Normal) 09/04/24 22:05 Urine Ketones 1+ (Negative) H 09/04/24 22:05 Urine Blood 1+ (Negative) A 09/04/24 22:05 Urine Nitrate Negative (Negative) 09/04/24 22:05 Urine Bilirubin Negative (Negative) 09/04/24 22:05 Urine Urobilinogen 1.0 mg/dL (Negative) 09/04/24 22:05 Ur Leukocyte Esterase Trace (Negative) A 09/04/24 22:05 Urine RBC 11-20 /hpf (0-2) H 09/04/24 22:05 Urine WBC 6-10 /hpf (0-5) 09/04/24 22:05 Ur Squamous Epith Cells 11-20 /hpf (0-5) 09/04/24 22:05 Amorphous Sediment Not Reportable 09/04/24 22:05 Urine Bacteria None seen /hpf (NONE) 09/04/24 22:05 Hyaline Casts 1.65 /lpf 09/04/24 22:05 All radiology interpretation(s) finalized by discharge Discharge Plan Discharge Patient Disposition: Home Clinical Impression: Biliary colic Condition: Stable Prescriptions: New ondansetron HCl 4 mg tablet 4 mg PO Q8H Qty: 30 0RF No Action buspirone 10 mg tablet 10 mg PO BID PRN (Reason: anxiety) Qty: 60 1RF Hold Instructions: Doctor's Order fluoxetine 40 mg capsule 40 mg PO DAILY Qty: 90 3RF albuterol sulfate [Ventolin HFA] 90 mcg/actuation HFA aerosol inhaler 2 puff inhalation Q4H PRN (Reason: shortness of breath or wheezing) Qty: 8.5 1RF medroxyprogesterone [Depo-Provera] 150 mg/mL suspension 150 mg IM .every 3 months Qty: 1 4RF cholecalciferol (vitamin D3) 50 mcg (2,000 unit) capsule 50 mcg PO DAILY Qty: 30 6RF Discharge Orders: Discharge ED (Routine); Ordered 09/04/24 Ordered By: Denny Millan Referrals: Hank Yañez MD [Primary Care Provider] - Discharge Diet: Usual diet Patient Instructions: Biliary Colic (ED) Activity Restrictions/Additional Instructions: Follow-up with general surgery. Take Zofran for nausea. Avoid any potential foods that may make your pain worse. Return with any new or worsening of your symptoms. Drink any fluids and take Tylenol/ibuprofen for any pain. Coding Level of Care Code ED C.O.D. Clerk for Alec Marquez
[2024-09-04 22:23] LABS: Bilirubin Urine Negative (Negative); Blood Urine 1+ (Negative); Glucose Urine UA Negative (Normal); Ketones Urine 1+ (Negative); Leukocyte Esterase Urine Trace (Negative); Nitrate Urine Negative (Negative); Protein Urine Trace (Negative); Specific Gravity, Urine 1.028 (1.005-1.030); Urine Appearance Clear (CLEAR); Urine Color Yellow (Yellow); pH Urine 6.5 (5-7)
[2024-09-04 22:28] LABS: Add Urine Microscopic? YES; Bacteria Urine None Seen /hpf; Hyaline Casts Urine 1.65 /lpf
[2024-09-04] MEDS: ondansetron 2 mg/ML SDV 2 mL 8 MG IVP (22:52)
[2024-09-04 22:53] VITALS: RESP 18; O2SAT 96
[2024-09-04] MEDS: morphine 4 mg/mL SDV 1 mL IVP (22:53)
[2024-09-04 22:56] VITALS: PULSE 84; O2SAT 96
[2024-09-04 23:00] VITALS: BP 123/86; PULSE 85; RESP 18; O2SAT 97
[2024-09-04 23:01] LABS: Basophils % 0.2 %; Eosinophils # 0.2 10^3/uL (0.0-0.8); Eosinophils % 2.1 %; Hematocrit 40.7 % (36-47); Lymphocytes # 1.2 10^3/uL (0.8-4.8); Lymphocytes % 11.7 %; Mean Corpuscular HGB Conc 31.9 g/dL (30-55); Mean Corpuscular Hemoglobin 27.4 pg (27-33); Mean Corpuscular Volume 85.7 fl (85-98); Monocytes # 0.4 10^3/uL (0.2-0.9); Monocytes % 3.9 %; Neutrophils # 8.02 10^3/uL (1.8-7.7); Neutrophils % 81.9 %; Nucleated Red Blood Cells % 0 %; Platelet Count 215 10^3/cmm (157-399); Red Blood Count 4.75 10^6/uL (3.85-5.65); Red Cell Distribution Width 13.4 % (12.1-15.1)
[2024-09-04 23:51] VITALS: BP 127/69; PULSE 82; RESP 18; O2SAT 98
[2024-09-05] LABS: Alanine Aminotransferase 14 U/L (0-33); Albumin Level 3.9 g/dL (3.5-5.2); Alkaline Phosphatase 78 U/L (35-105); Aspartate Amino Transferase 15 U/L (0-32); Blood Urea Nitrogen 17 mg/dL (6-20); Calcium 8.5 mg/dL (8.5-10.5); Carbon Dioxide 20 mmol/L (22-29); Chloride 109 mmol/L (98-107); Creatinine Clr Calc Pharmacy 161.0926; Globulin 3.1 g/dL (1.3-4.6); Glomerular Filtration Rate 100.4 mL/min (90-130); Glucose 107 mg/dL (65-115); Lipase 24 U/L (13-60); Osmolality Calculated 296 mOsm/kg (285-295); Sodium 142 mmol/L (136-145); Total Bilirubin 0.7 mg/dL (0.15-1.2)
[2024-09-05 00:10] LABS: HCG, Serum Qual Negative (Negative)
[2024-09-05 00:30] VITALS: BP 141/87; PULSE 93; RESP 14; O2SAT 97
[2024-09-05] MEDS: metoclopramide 5 mg/mL SDV 2 mL 10 MG IVP (00:32)
[2024-09-05 00:51] VITALS: BP 135/82; PULSE 81; RESP 14; O2SAT 97
--- NOTE | 2024-09-05 07:40 | DCPLANNER ---
messaged gen surg for er f/u
== END 2024-09-05 00:53 | disposition home or self-care (01) ==
PROVIDERS: Emergency Provider Physician Assistant; PCP Family Medicine
DX: K80.50 Calculus of bile duct without cholangitis or cholecystitis without obstruction (principal)
CPT/HCPCS: 76705; 80053; 81001; 83690; 84703; 85025; 96374; 96375; 99285; J2270; J2405; J2765